=== PATIENT | male | born 1970 ===

== ENCOUNTER 2021-03-20 13:48 | Emergency (ER) | payer MEDICAID, OTHER ==
[~2021-03-20] VITALS: Ht 170.2 cm; Wt 73.9 kg
[2021-03-20 14:12] VITALS: BP 107/50
== END 2021-03-20 15:26 | disposition left against medical advice (07) ==
LOC: ER 13:56
DX: R06.02 Shortness of breath (principal); Z53.21 Procedure and treatment not carried out due to patient leaving prior to being seen by health care provider
CPT/HCPCS: 93005

== ENCOUNTER 2021-03-20 17:00 | Emergency (ER) | payer MEDICAID ==
[~2021-03-20] VITALS: Ht 167.6 cm; Wt 79.4 kg
[2021-03-20 17:32] VITALS: BP 140/82
== END 2021-03-21 05:42 | disposition left against medical advice (07) ==
LOC: ER 17:00 → EDUNIT# 17:00 → EDBD 17:00 → ER 20:00
DX: R06.02 Shortness of breath (principal); Z53.21 Procedure and treatment not carried out due to patient leaving prior to being seen by health care provider
CPT/HCPCS: 93005